=== PATIENT | male | born 1960 | race Caucasian/White ===

== ENCOUNTER 2018-09-11 10:40 | Outpatient (RCR) | payer BC ==
[~2018-09-11 10:40] MED LIST: CEPHALEXIN500 M1 PO; KEPPRA250 MG PO; MULTIPLE VITAMI1 CAP PO; NO HOME MEDICATIONS; TYLENOL 325MG325 MG PO; XARELTO15 MG PO
== END 2018-12-10 | disposition still patient (30) ==
LOC: WSST
DX: R13.12 Dysphagia, oropharyngeal phase (principal); R13.14 Dysphagia, pharyngoesophageal phase

== ENCOUNTER → 2018-09-23 | Outpatient (CLI) | payer BC | LOC: COL.RAD 07:53 | DX: R13.12 Dysphagia, oropharyngeal phase (principal) ==

== ENCOUNTER 2019-01-28 01:47 | Emergency (ER) | payer BC ==
[~2019-01-28] VITALS: Ht 170.2 cm; Wt 63.6 kg
[2019-01-28 01:54] VITALS: BP 138/94; TEMP 98.1
[2019-01-28] MEDS ORDERED: ASPIRIN 81M81 MG/TA2 PO (01:58)
[2019-01-28] MEDS ORDERED: NORCO 325 MG-51 TAB PO (03:45)
[2019-01-28] MEDS ORDERED: FLEXERIL 1010 MG/TAB PO (03:50)
[2019-01-28 03:56] VITALS: PULSE 64
== END 2019-01-28 03:56 | disposition home or self-care (01) ==
LOC: COL.ER 01:47
DX: S20.212A Contusion of left front wall of thorax, initial encounter (principal); Z79.82 Long term (current) use of aspirin; W00.9XXA Unspecified fall due to ice and snow, initial encounter